=== PATIENT | male | born 1980 | race Caucasian/White ===

== ENCOUNTER → 2017-06-17 | Outpatient (CLI) | payer MEDICAID ==
[~2017-06-17] MED LIST: CATHETER FLUSH 10 ML SYR IV PRN; IOHEXOL 350 MG/ML 100 ML (OMNIPAQUE 350) VIAL IV ONE; NS 100 ML (IVPB) BAG IV ONE
--- NOTE | 2017-06-17 17:27 | Diagnostic Imaging Report ---
PROCEDURE: CT abdomen and pelvis with contrast. TECHNIQUE: Multiple contiguous axial images were obtained through the abdomen and pelvis after administration of intravenous contrast. INDICATION: Rectal abscess, fistula for six years. COMPARISON: None. FINDINGS: The lung bases are clear. The heart is normal in size. No pericardial effusion is seen. No acute osseous abnormality is seen. No focal hepatic lesions are seen. The spleen appears normal. The pancreas is normal. The adrenal glands are normal. There is a 1.7 cm low-attenuating lesion in the posterior right kidney, likely a cyst. The bowel loops are nondistended. No free fluid or free air is seen. The appendix is normal. The wall of the distal colon appears mildly prominent, thought to be due to decompression. No significant pericolonic edema is seen. There is soft tissue density at the left gluteal cleft, which may represent the fistula previously described. No rim-enhancing fluid collections are seen in the surrounding soft tissues or within the pelvis to indicate an abscess. No pelvic masses or lymphadenopathy are seen. IMPRESSION: 1. 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 No rim-enhancing fluid collections are seen. Dictated by: Dictated on workstation # [id number]
== END ==
LOC: RAD 16:45
PROVIDERS: ATTEND Surgery
DX: K61.1 Rectal abscess (principal)
CPT/HCPCS: 74177

== ENCOUNTER 2019-12-17 10:37 | Day surgery (SDC) | payer BC ==
[2019-12-17] VITALS (11 sets, daily range): BP systolic 107–170; BP diastolic 73–114
[~2019-12-17] VITALS: Ht 200.7 cm; Wt 122.7 kg
[2019-12-17] MEDS ORDERED: ceFAZolin 2 GM IV Premixed 50 ML ONE (10:52)
[2019-12-17] MEDS ORDERED: LACTATED RINGERS 1,000 ML IV PRN (10:57)
--- NOTE | 2019-12-17 11:57 | Progress Note-Pre Operative ---
Pre-Operative Progress Note H&P Reviewed The H&P was reviewed, patient examined and no changes noted. Date Seen by Provider: Dec 17, 2019 Time Seen by Provider: 11:45 Date H&P Reviewed: Dec 17, 2019 Time H&P Reviewed: 11:45 Pre-Operative Diagnosis: perianal abscess and fistula MARSHA OQUENDO MD Dec 17, 2019 11:57
[2019-12-17] MEDS ORDERED: ACETAMINOPHEN 325 MG TABLET PO PRN (12:00)
[2019-12-17] MEDS ORDERED: ONDANSETRON 4 MG/2 ML (SDV) Z0FRAN IVP PRN ×2 (12:00→15:15)
[2019-12-17] MEDS ORDERED: oxyCODONE/APAP 5/325MG (PERCOCET 5) TABLET PO PRN (12:00)
[2019-12-17] MEDS ORDERED: morphine INJ 10 MG/ML 1ML (SYR OR VIAL) IVP PRN ×2 (12:00)
--- NOTE | 2019-12-17 12:00 | Discharge Inst-Surgical ---
D/C Lap Instructions-JERE Follow Up Appt in 2 weeks Activity as tolerated sitz bath qid Regular Diet, high fiber for very soft stools daily Symptoms to Report: Fever over 101 degree F, Nausea/Vomiting Infection Signs and Symptoms to report: Increased redness, Foul odor of wound, Increased drainage Bathing instructions: May shower Operative Area Clean/Dry; Keep incision clean/dry If any problems/questions: Contact your physician or go to Emergency Room MARSHA OQUENDO MD Dec 17, 2019 12:00
[2019-12-17] MEDS ORDERED: BUP/EPI 0.25% 1:200,000 (MARCAINE) 30 ML VIAL ONE (12:53)
[2019-12-17] MEDS ORDERED: MIDAZOLAM 2 MG/2 ML (VERSED) VIAL IV ONE (13:15)
[2019-12-17] MEDS ORDERED: MIDAZOLAM 2 MG/2 ML (VERSED) VIAL ONE (13:19)
[2019-12-17] MEDS ORDERED: ONDANSETRON 4 MG/2 ML (SDV) Z0FRAN ONE (13:19)
[2019-12-17] MEDS ORDERED: proPOfol 200 MG/20 ML (DIPRIVAN) VIAL IV ONE (13:19)
[2019-12-17] MEDS ORDERED: fentaNYL INJECTION 100 MCG/2 ML AMP ONE ×2 (13:19→13:53)
[2019-12-17] MEDS ORDERED: LIDOCAINE PF 2% 5 ML (XYLOCAINE) VIAL ONE (13:19)
[2019-12-17] MEDS ORDERED: SEVOFLURANE (ULTANE) 15 ML INHAL SOLN ONE ×5 (13:19→14:54)
[2019-12-17] MEDS ORDERED: HYDROmorphone 2 MG/ML VIAL (DILAUDID) ONE (14:36)
[2019-12-17] MEDS ORDERED: HYDROmorphone 2 MG/ML VIAL (DILAUDID) IV ONE (15:15)
--- NOTE | 2019-12-17 15:15 | Anesthesia-General Post-Op ---
General Patient Condition Mental Status/LOC: Same as Preop Cardiovascular: Satisfactory Nausea/Vomiting: Absent Respiratory: Satisfactory Pain: Controlled Complications: Absent Post Op Complications Complications None Follow Up Care/Instructions Patient Instructions None needed. Anesthesia/Patient Condition Patient Condition Patient is doing well, no complaints, stable vital signs, no apparent adverse anesthesia problems. No complications reported per nursing. BAIRON PHELPS CRNA Dec 17, 2019 15:15
--- NOTE | 2019-12-17 15:28 | Progress Note-Post Operative ---
Post-Operative Progess Note Surgeon (s)/In School Suspension Coordinator (s) Surgeon MARSHA OQUENDO MD In School Suspension Coordinator: mary lux APRN Pre-Operative Diagnosis perianal abscess and fistula Post-Operative Diagnosis left ischiorectal abscess, left lateral fistula deep to anal sphincters. Procedure & Operative Findings Date of Procedure 12/17/19 Procedure Performed/Findings anal exam under anesthesia. incision and drainage left ischirectal abscess. placement seton suture fistula. Anesthesia Type general LMA Estimated Blood Loss Estimated blood loss (mL): minimal Specimens/Packing Specimens Removed none MARSHA OQUENDO MD Dec 17, 2019 15:28
--- NOTE | 2019-12-18 01:42 | OPERATIVE REPORT ---
DATE OF SERVICE: 12/17/2019 ATTENDING PRIMARY CARE PHYSICIAN: Dr. Enrique Davis. PREOPERATIVE DIAGNOSIS: Perirectal abscess and fistula deep to the anal sphincter rings. POSTOPERATIVE DIAGNOSIS: Perirectal abscess and fistula deep to the anal sphincter rings. PROCEDURE: Incision and drainage of left ischiorectal abscess, placement of a Seton suture, anal exam under anesthesia, pudendal nerve block. SURGEON: Marsha Oquendo MD. FIRST PRESS OPERATOR: Blaise Abbott APRN. ANESTHESIA: General laryngeal mask airway with local. ESTIMATED BLOOD LOSS: Minimal. FINDINGS: Left lateral ischiorectal abscess. 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 DISPOSITION: The patient tolerated the procedure well. INDICATIONS: The patient is a 39-year-old male who we had seen in 2016 for bloody drainage of the anorectal region. He reported a perirectal cyst removed in 2010 and states that it never truly healed from that point forward. He states that he continues to always have redness, erythema as well as drainage coming from the left perianal site. He was seen in the office with a significant amount of pain and swelling in the left perianal region consistent with an abscess. Due to the pain, we could not examine him in the office. DESCRIPTION OF PROCEDURE: The patient was brought to the operating room, laid supine on the table. After adequate IV pain and sedative medications and general laryngeal mask airway intubation, the patient was placed in lithotomy position and the perineum was prepped and draped in standard surgical fashion. A 0.5% Marcaine with epinephrine was then used to proceed with a pudendal nerve block just inferior to the bilateral ischial tuberosity. A self-retaining retractor was then placed. A large ischiorectal abscess along the left side was identified. We then proceeded with an incision and drainage of this large abscess as well as placement of a half inch Altura drain to keep this open. We then proceeded with identification of the fistula within the rectal wall along the left side. Using a jazmyn hook, this was placed through the fistula opening and a vessel loop was placed and tied around the fistula. Good hemostasis was observed. The abscess cavity was then copiously irrigated and suctioned out and this was packed with 1-inch iodoform gauze. The anus was then packed with Gelfoam covered with Surgicel and Surgilube. The patient tolerated the procedure well. We will have him continue with antibiotics as well as pain control and do Sitz baths q.i.d. He will also need to proceed with stool softeners as well as high-fiber supplement to make his stools as soft as possible. We will have him follow up every week to remove the Mariah drain when adequate as well as to tighten the Seton suture in a gradual fashion to prevent anal incontinence. Job ID: [id number] DocumentID: [id number] Dictated Date: 12/17/2019 14:59:58 [employer] Date: 12/18/2019 01:41:35 Dictated By: MARSHA OQUENDO MD MTDD
== END 2019-12-17 17:25 | disposition home or self-care (01) ==
LOC: SDC 10:37
PROVIDERS: ATTEND Surgery
DX: K61.39 Other ischiorectal abscess (principal); I10 Essential (primary) hypertension; L03.317 Cellulitis of buttock; E66.9 Obesity, unspecified; Z68.30 Body mass index [BMI] 30.0-30.9, adult; Z79.899 Other long term (current) drug therapy
CPT/HCPCS: 87070; 87075; 87077; 87101; 87186; 87205